=== PATIENT | male | born 1980 | race Caucasian/White ===

== ENCOUNTER 2021-07-19 08:48 | Outpatient (CLI) | payer OTHER, SELFPAY ==
--- NOTE | 2021-07-19 08:56 | EST_ITS ---
Patient Info Name: Nitish Cobb Age: 40 years : 1980 Gender: Male Ht: 72 in Wt: 185 lbs BSA: 2.07 m2 HR: 89 bpm BP: 131 / 89 mmHg Heart Rhythm: Sinus Rhythm Technical Quality: Fair Exam Date: 07/19/2021 9:19 AM Exam Location: [facility] Pulmonary Patient Status: Outpatient Admit Date: 07/19/2021 Staff Ordering Physician: Valentin Gross DO Production Welder: Lola Valentino RDCS Attending Provider: Referring Physician: Renato LEIVA; Exam Type: CA stress echo Study Info Indications - CP Treadmill exercise stress echocardiogram is performed. Summary 1. 1. Negative Frakno exercise stress test for ischemic ST changes by ECG criteria. 2. 2. Good functional capacity, achieving 12 METs of workload. 3. 3. Appropriate HR response to exercise. 4. 4. Appropriate HR recovery at 1 minute post exercise. 5. 5. Negative stress echocardiogram for ischemia by wall motion analysis. 6. 6. Patient informed of the above results. Stress Echo Findings Left Ventricle Appropriate increase in LV endocardial thickening with systole. Appropriate augmentation of contractility with systole. No wall motion abnormality. Left Ventricle Normal LV systolic function, no wall motion abnormality. Protocol: Franko Stress ECG Details Stage: REST Duration (min): 1 min : 15 sec Speed (mph): 0.0 Grade (%): 0 HR (bpm): 68 SBP (mmHg): 131 DBP (mmHg): 85 METS: --- Stage: REST Duration (min): 1 min : 26 sec Speed (mph): 0.0 Grade (%): 0 HR (bpm): 73 SBP (mmHg): 131 DBP (mmHg): 85 METS: --- Stage: REST Duration (min): 2 min : 14 sec Speed (mph): 0.0 Grade (%): 0 HR (bpm): 84 SBP (mmHg): 131 DBP (mmHg): 85 METS: --- Stage: REST Duration (min): 9 min : 31 sec Speed (mph): 0.0 Grade (%): 0 HR (bpm): 76 SBP (mmHg): 131 DBP (mmHg): 85 METS: --- Stage: STAGE 1 Duration (min): 1 min : 0 sec Speed (mph): 1.7 Grade (%): 10 HR (bpm): 93 SBP (mmHg): 131 DBP (mmHg): 85 METS: --- Stage: STAGE 1 Duration (min): 2 min : 0 sec Speed (mph): 1.7 Grade (%): 10 HR (bpm): 101 SBP (mmHg): 131 DBP (mmHg): 85 METS: --- Stage: STAGE 1 Duration (min): 3 min : 0 sec Speed (mph): 1.7 Grade (%): 10 HR (bpm): 95 SBP (mmHg): 145 DBP (mmHg): 73 METS: --- Stage: STAGE 2 Duration (min): 1 min : 0 sec Speed (mph): 2.5 Grade (%): 12 HR (bpm): 102 SBP (mmHg): 145 DBP (mmHg): 73 METS: --- Stage: STAGE 2 Duration (min): 2 min : 0 sec Speed (mph): 2.5 Grade (%): 12 HR (bpm): 108 SBP (mmHg): 147 DBP (mmHg): 73 METS: --- Stage: STAGE 2 Duration (min): 3 min : 0 sec Speed (mph): 2.5 Grade (%): 12 HR (bpm): 109 SBP (mmHg): 147 DBP (mmHg): 73 METS: --- Stage: STAGE 3 Duration (min): 1 min : 0 sec Speed (mph): 3.4 Grade (%): 14 HR (bpm): 121 SB
== END 2021-07-19 08:49 | disposition home or self-care (01) ==
LOC: ANHCARD 08:50
PROVIDERS: PCP Internal Medicine; Visit Provider Internal Medicine Cardiovascular Disease
DX: R07.9 Chest pain, unspecified (principal)
CPT/HCPCS: 93351

== ENCOUNTER 2023-10-17 07:28 | Outpatient (CLI) | payer OTHER, SELFPAY ==
--- NOTE | ~2023-10-17 | US_ITS ---
EXAMINATION: US carotid duplex BI DATE: 10/17/2023 08:15 INDICATION: Carotid bruit. Other symptoms and signs involving the circulatory system. TECHNIQUE: Grayscale, color Doppler, and pulsed Doppler images of the cervical carotid arteries were obtained. The degree of vessel stenosis is placed in one of the following categories: normal, <50%, 5 0-69%, >=70% but less than near-occlusion, near-occlusion, or total occlusion. Note that percent sten osis relative to normal distal artery lumen diameter is indirectly measured from velocity measurement s as described by Rubens, et al. Radiology 2003; 229:340-346. COMPARISON: None. FINDINGS: RIGHT: The right common carotid artery (CCA) peak systolic velocity (PSV) is 86 cm/s. The right internal car otid artery (ICA) PSV is 85 cm/s. The right ICA end-diastolic velocity (EDV) is 22 cm/s. The right IC A/CCA PSV ratio is 1.0. Grayscale and color Doppler images yield an estimate of <50% diameter reducti on from plaque in the ICA. There is antegrade flow in the right vertebral artery. LEFT: The left CCA PSV is 89 cm/s. The left ICA PSV is 113 cm/s. The left ICA EDV is 56 cm/s. The left ICA/ CCA PSV ratio is 1.3. Grayscale and color Doppler images yield an estimate of <50% diameter reduction from plaque in the ICA. There is antegrade flow in the left vertebral artery. IMPRESSION: 1. <50% stenosis in the right internal carotid artery. 2. <50% stenosis in the left internal carotid artery. Reviewed, dictated and finalized at location A.
== END 2023-10-17 07:29 | disposition home or self-care (01) ==
PROVIDERS: PCP Family Medicine; Visit Provider Internal Medicine Cardiovascular Disease
DX: I65.23 Occlusion and stenosis of bilateral carotid arteries (principal)
CPT/HCPCS: 93880

== ENCOUNTER 2024-06-27 00:34 | Day surgery (SDC) | payer OTHER, SELFPAY ==
[2024-06-18 14:53] VITALS: BMI 26.4
--- OUTSIDE RECORDS SUMMARY | 2024-06-27 00:42 | XMS_ITS | Referral Summary ---
Author Organization [facility] Address [address] [place] [address] Care Team Providers Care Groover Runner Name Role Phone Nick Ramsey MD Primary Care Provider [phone] Allergies No known active allergies Medications UNKNOWN TO PATIENT CPAP7 cm [id number], VentrapragadaActive Activ e Active Problems Problem Noted Date Diagnosed Date Right elbow pain 08/07/2019 Lateral epicondylitis of right elbow 08/07/2019 Elbow injury, right, subsequent encounter 2019 Elbow injury, right, initial encounter 0 Injury of right shoulder 03/27/2019 CPAP (continuous positive airway pressure) angelika eng 05/16/2017 GAY (obstructive sleep apnea) 05/11/2016 Immunizations Immunization Administration Dates Next Due Influenza, Unspecified 01/14/2018 Social History Tobacco Use Types Packs/Day Years Used Date Smoking Tobacco: Never Smokeless Tobacco: Never Alcohol Use Standard Drinks/Week Comments Yes 0 (1 standard drink = 0.6 oz pur e alcohol) Personal Safety Answer Date Recorded Getting School Help Needed Not on file 05/26 Sex and Gender Information Value Date Recorded Sex Assigned at Not on file 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 Gender Identity Not on file Sexual Orientation Not on file Last Filed Vital Signs Vital Sign Reading Time Taken Comments Blood Pressure - - Pulse - - Temperature - - Respiratory Rate - - Oxygen Saturation - - Inhaled Oxygen Concentration - - Weight 87.5 kg (193 lb) 09/16/2019 10:49 AM CDT Height 182.9 cm (6') 09/16/2019 10:49 AM CDT Body Mass Index 26.18 09/16/2019 10:49 AM CDT Plan of Treatment Not on file Insurance * Guarantor: MARISA GILLETTE Account Type Relation to Patient Date of Phone Billing Address Workers Comp Employer [employer] [address] [phone] Care Teams Groover Runner Relationship Specialty Start Date End Date Nick Ramsey MD [address] [place] [id number] PCP - General Internal Medicine 03/27/19
--- OUTSIDE RECORDS SUMMARY | 2024-06-27 00:42 | XMS_ITS | Clinical Summary ---
Author Organization [facility] Address [address] [place] [address] Care Team Providers Care Batch Unloader Name Role Phone Unavailable Primary Care Provider Unavailabl e Source Comments [facility],non-owned Affiliates and Associated Physician Practices is amultiple site organization consisting of ambulatory clinics and hospital sitesin [place], [place], [place]. This disclosure is being madepursuant to the Care Everywhere program and may not contain all information available regarding this patient. 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 Gender Identity Not on file Sexual Orientation Not on file Plan of Treatment Health Maintenance Due Date Last Done Comments COLOGUARD (AGES 45-75) - COL ON CA SCREENING 1980 COLON MONITORING 1980 COLONOSCOPY - COLON CA SCREENING 1978 CT COLONOGRAPHY - COLON CA SCREENING 1980 Colorectal Cancer Screening 1980 FIT - COLON CA SCREENING 1980 FLEX SIG - COLON CA SCREENING 1980 LIPID TESTING 1980 HIV SCREENING 1993 HEPATITIS C SCREENING 09/01/1996 DTAP/TDAP/TD VACCINES (1 - Tdap) 1997 HEPATITIS B VACCINE (1 of 3 - 19+ 3-dose series) 1997 COVID-19 VACCINE ( - 2023-2 5 season) 2023 DEPRESSION SCREENING 03/12/2024 INFLUENZA VACCINE (Season Ended) 2024 ZOSTER VACCINE (1 of 2) 2028 HIB VACCINE Aged Out No longer eligi ble based on patient's age to complete this topic HPV VACCINE Aged Out No longer eligi ble based on patient's age to complete this topic MENINGOCOCCAL (Group B) VACC INE SHARED DECISION-MAKING Aged Out No longer eligibl e based on patient's age to complete this topic MENINGOCOCCAL GROUPS A/C/Y/W VACCINE Aged Out No longer eligible b ased on patient's age to complete this topic PNEUMOCOCCAL VACCINE Aged Out No long er eligible based on patient's age to complete this topic Insurance AETNA AETNA
--- OUTSIDE RECORDS SUMMARY | 2024-06-27 00:42 | XMS_ITS | Clinical Summary ---
Author Organization [facility] Address [address] [place] [address] Care Team Providers Care Sampler Tester Name Role Phone Greg Tobin MD Primary Care Provider [phone] Allergies No known active allergies Medications CPAP DME DEVICE CPAP7 cm [id number], VentrapragadaActive Activ e atorvastatin 20 MG tablet Take 1 tablet (20 mg total) by mouth daily. 05/04/19 22 Active omeprazole 20 MG capsule 09/22/19 21 Active testosterone cypionate (DEPO TESTOSTERONE) 200 MG/ML injection INJECT 200MG INTRAMUSCURALY EVERY OTHER WEEK 04/23/19 23 Active Active Problems Problem Noted Date Diagnosed Date Lateral epicondylitis of right elbow 08/07/2019 Right elbow pain 08/07/2019 Elbow injury 03/28/2019 Injury of right shoulder 03/27/2019 CPAP (continuous positive airway pressure) depleny deneder 05/16/2017 GAY (obstructive sleep apnea) 05/11/2016 Encounters Date Type Department Care Team Description 05/14/2024 Scan HEALTH INFO SRVCS Scanned, Doc Med Group 05/13/2024 7:20 AM STICKER HAND [facility] - [address], [address] [place] [address] Sav Chandra DO Follow Up 05/13/2024 [facility] - [address], [address] [place] [phone] Sav Chandra DO Orders 05/13/2024 Travel from Last 3 Months Immunizations Immunization Administration Dates Next Due Influenza (Generic) 01/14/2018 Influenza Adult (Generic) 01/14/2018 Family History Medical History Relation Comments Sleep Apnea Brother Cancer Father Hypertension Father Sleep Apnea Father Cancer Mother Hypertension Mother Relation Status Comments Brother Father Mother Social History Tobacco Use Types Packs/Day Years Used Date Smoking Tobacco: Never Smokeless Tobacco: Never Tobacco Cessation:Counseling Given: Yes Alcohol Use Standard Drinks/Week Comments Yes 0 (1 standard drink = 0.6 oz pur e alcohol) occasionally PHQ-2 Answer Date Recorded Patient Health Questionnaire-2 Score 0 05/14/2023 Sex and Gender Information Value Date Recorded Sex Assigned at Not on file Legal Sex Male 7:42 PM CDT Gender Identity Not on file Sexual Orientation Not on file Last Filed Vital Signs Vital Sign Reading Time Taken Comments Blood Pressure 125/79 05/13/2024 7:25 AM STICKER HAND Pulse 74 05/13/2024 7:25 AM STICKER HAND Temperature 36.1 C (97 F) 05/13/2024 7:25 AM STICKER HAND Respiratory Rate 18 05/13/2024 7:25 AM STICKER HAND Oxygen Saturation 98% 05/13/2024 7:25 AM STICKER HAND RA Inhaled Oxygen Concentration - - Weight 93 kg (205 lb) 05/13/2024 7:25 AM STICKER HAND Height 182.9 cm (6') 05/13/2024 7:25 AM STICKER HAND Body Mass Index 27.8 05/13/2024 7:25 AM STICKER HAND Plan of Treatment Upcoming Encounters Date Type Department Care Team (Late st Contact Info) Description 05/13/2025 7:20 AM STICKER HAND Office Visit [facility] - [facility] [address] [place] [phone] Sav Chandra DO [address] [place] [address] Health Maintenance Due Date Last Done Comments Colorectal Cancer Screening Colonoscopy (10 Years) 1978 Annual Physical 1981 Hepatitis C 1996 DTaP, Tdap and Td Vaccines ( 1 - Tdap) 1997 Hepatitis B Vaccines (1 of 3 - 19+ 3-dose series) 1997 COVID-19 Vaccine (1 - 2023-2 5 season) 2023 PHQ-2 (Physician [place]) 03/12/2024 05/14/2023 HPV Vaccines Aged Out No longer eligi ble based on patient's age to complete this topic Meningococcal B Vaccine Aged Out No l onger eligible based on patient's age to complete this topic Meningococcal Vaccine Aged Out No boogie destiney eligible based on patient's age to complete this topic Pneumococcal Vaccine: Pediat rics (0 to 5 Years) and At-Risk Patients (6 to 49 Years) Aged Out No longer eligi ble based on patient's age to complete this topic RSV Immunizations Under 20 Months Aged Out No longer eligible based on patient's age to complete this topic Insurance [facility] Care Teams Sampler Tester Relationship Specialty Start Date End Date Greg Tobin MD [address] [place] [id number] PCP - General FAMILY PRACTICE 05/31/22
--- OUTSIDE RECORDS SUMMARY | 2024-06-27 00:42 | XMS_ITS | Clinical Summary ---
Author Organization [facility] Address [address] [place] [address] Care Team Providers Care Natural Resources Specialist Name Role Phone Nick Ramsey MD Primary Care Provider Allergies No known active allergies Medications UNKNOWN TO PATIENT CPAP7 cm [id number], VentrapragadaActive Activ e Active Problems Problem Noted Date Diagnosed Date Right elbow pain 08/07/2019 Lateral epicondylitis of right elbow 08/07/2019 Elbow injury, right, subsequent encounter 2019 Elbow injury, right, initial encounter 0 Injury of right shoulder 03/27/2019 CPAP (continuous positive airway pressure) angelika eng 05/16/2017 GAY (obstructive sleep apnea) 05/11/2016 Immunizations Immunization Administration Dates Next Due Influenza, Unspecified 01/14/2018 Surgical History Surgery Date Site/Laterality Comments WRIST FUSION Family History Medical History Relation Name Comments Cancer Father Diabetes Father Hypertension Father Cancer Mother Hypertension Mother Relation Name Status Comments Father Mother Social History Tobacco Use Types [...] on file 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
--- OUTSIDE RECORDS SUMMARY | 2024-06-27 00:42 | XMS_ITS | Encounter Summary ---
Author Organization [facility] Address [address] [place] [address] Care Team Providers Care Frit Maker Name Role Phone Unavailable Primary Care Provider Unavailabl e Encounter Details Date Type Department Care Team (Late st Contact Info) Description 05/07/2023 Lab Requisition [facility] - DermPath Lab [address] [facility] [place] [facility] Level [address] Ruth Ann Pandya MD [address] [facility] [address] DEPT OF DERMATOLOGY [phone] Social History Tobacco Use Types Packs/Day Years Used Date Smoking Tobacco: Never Assessed Sex and Gender Information Value Date Recorded Sex Assigned at Not on file Legal Sex Male 8:50 AM SCHOOL PSYCHOMETRIST Gender Identity Not on file Sexual Orientation Not on file documented as of this encounter Plan of Treatment Not on file documented as of this encounter Procedures Procedure Name Priority Date/Time Associated Diagnosis Comments DERMATOPATHOLOGY Routine 05/07/2023 8:21 AM SCHOOL PSYCHOMETRIST documented in this encounter Results * DERMATOPATHOLOGY (05/07/2023 8:21 AM SCHOOL PSYCHOMETRIST) Case Report Dermatopathology Report Case: [id number] Authorizing Provider: Ruth Ann Pandya MD Collected: 05/07/2023 08:21 AM Ordering Location: [facility] DermPath Lab Received: 05/07/2023 12:44 PM Pathologist: Valeria Storm MD Specimen: Skin, right FA 11:36 AM SCHOOL PSYCHOMETRIST DERMATOPATHOLOGY LABORATORY Final Diagnosis Specimen A. SKIN, right FA: SEBORRHEIC KERATOSIS, MACULAR (L82.1) 11:36 AM SCHOOL PSYCHOMETRIST DERMATOPATHOLOGY LABORATORY Clinical History SK vs pig ak 11:36 AM [facility] DERMATOPATHOLOGY LABORATORY Gross Description Specimen A: Received is one formalin filled container labeled with the patient's name and designated right FA. The specimen consists of a shave biopsy measuring 7x6x1 mm. Jar 0. 11:36 AM [facility] DERMATOPATHOLOGY LABORATORY Microscopic Description Specimen A. SKIN, right FA: Sections show a relatively broad, flat proliferation of small keratinocytes. The surface is gently papillated, and there is increased basilar pigmentation. 11:36 AM [facility] DERMATOPATHOLOGY LABORATORY Disclaimer An external and internal positive and negative controls are appropriate for the histochemical, immunohistochemical and immunofluorescence stain(s) in this case (if any), except where stated explicitly. The performance characteristics of the stain(s) cited in this report were developed and its performance characteristic determined by the Dermatopathology Laboratory at [facility], directed by Dr. Luz Storm. These tests need not be, and therefore are not, approved by the [place] Food and Drug Administration. The tests are used for clinical purposes. Billing Codes Specimen Charges Stain Charges 40214 1 11:36 AM [facility] DERMATOPATHOLOGY LABORATORY Embedded Images 11:36 AM [facility] DERMATOPATHOLOGY LABORATORY Pathology/Cytolo gy TISSUE SPECIMEN FROM SKIN / Unknown 05/07/2023 8:21 AM SCHOOL PSYCHOMETRIST 05/07/2023 12:44 PM SCHOOL PSYCHOMETRIST Ruth Ann Pandya MD LAB - PATHOLOGY/CYTOLOGY ORD ERABLES Final Result DERMATOPATHOLOGY LABORATORY [facility] - Department of Dermatology [facility] Medicine [address] [place] [address], [address] [phone] documented in this encounter Visit Diagnoses Not on filedocumented in this encounter
--- NOTE | 2024-06-27 06:45 | P.PNAN_ITS ---
Anes - Initial Pre Proc Eval Procedure: Operation Date: 06/27/24 08:00 Proposed Procedures p Screening Colonoscopy - Sloan Thao MD Date/Time: 06/27/24 06:45 Surgeon: Sloan Thao MD Pre Op Diagnosis: screening colon Patient Data Age: 43 Gender: M Height: 1.83 m Weight: 88.5 kg Allergies Allergy/AdvReac Type Severity Reaction Status Date / Time No Known Allergies Allergy Verified 06/27/24 06:44 Home Medications ?Medication ?Instructions ?Recorded ?Confirmed ?Type ascorbic acid (vitamin C) 1,000 mg 1 g PO DAILY 06/07/21 06/27/24 History tablet cholecalciferol (vitamin D3) 75 75 mcg PO DAILY 06/07/21 06/27/24 History mcg (3,000 unit) tablet multivit with minerals-folic 1 cap PO .daily 06/07/21 06/27/24 History acid-lycopene 0.4 mg-600 mcg capsule (Men's Daily) atorvastatin 20 mg tablet 20 mg PO DAILY #90 tabs 02/22/24 06/27/24 Rx mecobalamin (vitamin B12) 100 mcg PO DAILY 02/22/24 06/27/24 History sildenafil 100 mg tablet 100 mg PO DAILY PRN sexual 02/22/24 06/18/24 Rx activity #14 tabs syringe with needle 3 mL 23 x 1 #50 ea 02/22/24 02/22/24 Rx (BD Eclipse Luer-Jennifer) testosterone cypionate 200 mg/mL 200 mg IM .Q10 days #10 mL 06/23/24 06/27/24 Rx intramuscular oil Patient hx anesthesia problems: none Family hx anesthesia problems: none Results Review: All pre-operative results and documents have been reviewed as part of the pre- operative evaluation. [facility] Past Medical History Medical History Annual physical exam Encounter for screening for malignant neoplasm of prostate Low testosterone Surgical History Surgical History H/O wrist surgery Family History Family History Father Pancreatic cancer Diabetes mellitus Hypertension Heart disease Mother Breast cancer Hypertension Heart disease Social History Social History Social History: 02/15/24 very confident with medical forms Smoking status: Never smoker Alcohol intake: never Substance use: never Substance use type: does not use Do You Feel Safe in your Home?: Yes Lack of Transportation: No Lack of Food: Never True Current Housing: I Have Housing Concerned About Future Housing: No Difficulty Paying Gas/Electric Bills: No Difficulty Paying for Meds: No Currently Unemployed: No Education: Associate Degree Difficulty w/ Childcare or Family Care: No Living arrangements: with family Occupation/Education: occupation 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 Informed Consent: The patient's anesthetic plan and its attendant risks and benefits were discussed with the patient/family/POA. Questions were solicited and answers provided to the satisfaction of the patient/family/POA.
[2024-06-27 06:46] VITALS: BP 120/78; PULSE 80; RESP 20; TEMP 36.7; O2SAT 99; BMI 25.9
[2024-06-27] MEDS: LACTATED RINGERS 1,000 ML 150 ML IV CONT (06:49)
--- NOTE | 2024-06-27 07:44 | P.HP_ITS ---
History of Present Illness History of Present Illness Consent: Risks, benefits, and alternatives have been discussed and questions answered. Patient agrees to proceed with procedure. Chief complaint: screening colon Narrative: Nitish Cobb is a 43 year old male here for first screening colonoscopy Review of Systems Review of Systems: All systems reviewed & are unremarkable except as noted in HPI and below PMFSH Past Medical History Medical History (Updated 06/27/24 @ 07:45 by Sloan Thao MD) Colon cancer screening Annual physical exam Encounter for screening for malignant neoplasm of prostate Low testosterone Surgical History Surgical History H/O wrist surgery Family History Family History Father Pancreatic cancer Diabetes mellitus Hypertension Heart disease Mother Breast cancer Hypertension Heart disease Social History Social History Social History: 02/15/24 very confident with medical forms Smoking status: Never smoker Alcohol intake: never Substance use: never Substance use type: does not use Do You Feel Safe in your Home?: Yes Lack of Transportation: No Lack of Food: Never True Current Housing: I Have Housing Concerned About Future Housing: No Difficulty Paying Gas/Electric Bills: No Difficulty Paying for Meds: No Currently Unemployed: No Education: Associate Degree Difficulty w/ Childcare or Family Care: No Living arrangements: with family Occupation/Education: occupation 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: No Meds Home Medications and Allergies Home Medications ?Medication ?Instructions ?Recorded ?Confirmed ?Type ascorbic acid (vitamin C) 1,000 mg 1 g PO DAILY 06/07/21 06/27/24 History tablet cholecalciferol (vitamin D3) 75 75 mcg PO DAILY 06/07/21 06/27/24 History mcg (3,000 unit) tablet multivit with minerals-folic 1 cap PO .daily 06/07/21 06/27/24 History acid-lycopene 0.4 mg-600 mcg capsule (Men's Daily) atorvastatin 20 mg tablet 20 mg PO DAILY #90 tabs 02/22/24 06/27/24 Rx mecobalamin (vitamin B12) 100 mcg PO DAILY 02/22/24 06/27/24 History sildenafil 100 mg tablet 100 mg PO DAILY PRN sexual 02/22/24 06/18/24 Rx activity #14 tabs syringe with needle 3 mL 23 x 1 #50 ea 02/22/24 02/22/24 Rx (BD [facility]enn[facility]) testosterone cypionate 200 mg/mL 200 mg IM .Q10 days #10 mL 06/23/24 06/27/24 Rx intramuscular oil Allergies Allergy/AdvReac Type Severity Reaction Status Date / Time No Known Allergies Allergy Verified 06/27/24 06:44 Vital Signs Vital Signs - 24 hr 06/27/24 06:46 Temperature 98.1 F Pulse Rate 80 Respiratory Rate 20 Blood Pressure 120/78 Pulse Oximetry 99 Oxygen Delivery Room Air Exam Const: General: comfortable and no acute distress HENMT: Face/Nose/Sinus: Normal nares present Eyes: General: appearance normal, both eyes and all related structures Neck: Neck: no JVD Resp: Auscultation: clear to auscultation bilaterally Cardio: Rate: regular rate Rhythm: regular rhythm GI: Inspection: non-distended GI Palp: Yes Soft to palpation Skin: General skin exam: normal color Neuro: General: gait normal Speech: normal speech Extrem: General: normal to inspection Psych: Mental Status: mental status grossly normal Assessment and Plan Assessment and plan (1) Colon cancer screening: Code(s): Z12.11 - Encounter for screening for malignant neoplasm of colon Status: Acute Assessment and Plan: colonoscopy
[2024-06-27 07:56] VITALS: BP 132/83; PULSE 82; RESP 20; O2SAT 97
[2024-06-27 08:06] VITALS: BP 126/81; PULSE 80; RESP 12; O2SAT 96
[2024-06-27 08:16] VITALS: BP 131/88; PULSE 75; RESP 12; O2SAT 99
== END 2024-06-27 08:24 | disposition home or self-care (01) ==
PROVIDERS: PCP Physician Assistant Medical; Referring Provider Physician Assistant Medical; Visit Provider Internal Medicine Gastroenterology
PROC: 0DJD8ZZ Inspection of Lower Intestinal Tract, Via Natural or Artificial Opening Endoscopic (ICD-10-PCS; CPT 45378; principal; 2024-06-27 08:00)
DX: Z12.11 Encounter for screening for malignant neoplasm of colon (principal)
CPT/HCPCS: 45378; J2704; J7120